=== PATIENT | male | born 1955 | race Caucasian/White ===

== ENCOUNTER → 2017-04-25 | Outpatient (CLI) | payer MEDICARE, BC, MEDICAID ==
[~2017-04-25] MED LIST: CELEXA DPS20 MG PO; NORCO 5-325 TA1 EACH PO; ZOFRAN4 M1 PO
== END | disposition home or self-care (01) ==
LOC: RAD.S 07:23
DX: R10.9 Unspecified abdominal pain (principal); R11.0 Nausea; R16.0 Hepatomegaly, not elsewhere classified